=== PATIENT | female | born 1970 | race African-American/Black ===

== ENCOUNTER 2020-10-27 18:56 | Emergency (ER) | payer MEDICAID ==
[~2020-10-27] VITALS: Ht 167.6 cm; Wt 64.0 kg
[2020-10-27] MEDS ORDERED: ACETAMINOPHEN 325MG TABLET PO ONE (19:30)
[2020-10-27 21:29] VITALS: BP 130/97
== END 2020-10-27 21:32 | disposition home or self-care (01) ==
LOC: ER 18:56
DX: S20.212A Contusion of left front wall of thorax, initial encounter (principal); S20.211A Contusion of right front wall of thorax, initial encounter; S40.012A Contusion of left shoulder, initial encounter; R68.84 Jaw pain; G50.1 Atypical facial pain; W22.11XA Striking against or struck by driver side automobile airbag, initial encounter; V49.49XA Driver injured in collision with other motor vehicles in traffic accident, initial encounter; R00.0 Tachycardia, unspecified; R03.0 Elevated blood-pressure reading, without diagnosis of hypertension; E11.9 Type 2 diabetes mellitus without complications; Y93.89 Activity, other specified; Y92.488 Other paved roadways as the place of occurrence of the external cause
CPT/HCPCS: 71046; 93005; 99283